=== PATIENT | female | born 2000 | race Caucasian/White ===

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

== ENCOUNTER 2019-05-22 13:06 | Emergency (ER) | payer MEDICAID | END 2019-05-22 13:53 | disposition home or self-care (01) | LOC: E/R 13:53 | DX: O99.712 Diseases of the skin and subcutaneous tissue complicating pregnancy, second trimester (principal); L98.9 Disorder of the skin and subcutaneous tissue, unspecified; Z3A.28 28 weeks gestation of pregnancy | CPT/HCPCS: 99282; Z7502 ==